=== PATIENT | female | born 1975 | race Caucasian/White ===

== ENCOUNTER 2020-02-19 06:46 | Day surgery (SDC) | payer MEDICAID ==
[~2020-02-19] VITALS: Ht 162.6 cm; Wt 131.4 kg
[2020-02-19 07:11] LABS: HEMATOCRIT 40.5 % (36.0-48.0); HEMOGLOBIN 13.3 g/dL (12-16); MCH 30.3 pg (26.0-34.0); MCHC 32.8 g/dL (31.0-37.0); MCV 92.3 fL (80.0-100.0); MEAN PLATELET VOLUME 8.8 fL (7.4-10.4); RBC 4.39 10x6/uL (4.00-5.40); RDW 13.6 % (11.5-14.5); WBC 14.1 10x3/uL (4.8-10.8)
[2020-02-19 07:25] LABS: ANION GAP 12.2 mmol/L (8-16); CARBON DIOXIDE 25.4 mmol/L (21.0-32.0); CREATININE - SERUM 1.1 mg/dL (0.6-1.3); POTASSIUM - SERUM 3.6 mmol/L (3.5-5.1)
[2020-02-19] MEDS ORDERED: CELEXA40 MG PO (07:38)
[2020-02-19] MEDS ORDERED: METOPROLOL TART50 MG PO (07:39)
[2020-02-19] MEDS ORDERED: SYNTHROID300 MCG PO (07:40)
[2020-02-19] MEDS ORDERED: GLUCOPHAGE500 MG PO (07:42)
[2020-02-19] MEDS ORDERED: GEMFIBROZIL600 MG PO (07:43)
[2020-02-19] MEDS ORDERED: LYRICA75 MG PO (07:43)
[2020-02-19] MEDS ORDERED: NAPROSYN500 MG PO (07:44)
[2020-02-19] MEDS ORDERED: ULTRAM50 MG PO (07:46)
[2020-02-19] MEDS ORDERED: OMEPRAZOLE40 MG PO (07:47)
[2020-02-19] MEDS ORDERED: MULTI-DAY VITAM1 TAB PO (07:48)
[2020-02-19] MEDS ORDERED: FERROUS SULFAT325 MG PO (07:49)
[2020-02-19] MEDS ORDERED: PROBIOTIC250 MG PO (07:50)
[2020-02-19] MEDS ORDERED: PREDNISONE10 MG PO (07:52)
[2020-02-19 08:14] VITALS: BP 126/69; Ht 162.6 cm; Wt 131.4 kg
--- NOTE | 2020-02-19 10:22 | NUR ---
1005 AWAKE & ALERT. GIVEN DISCHARGE INFORMATION INCLUDING: MED REC, SHEET LISTING NSAIDS TO AVOID FOR 10-14 DAYS, HIGH FIBER DIET HANDOUT, MED REC, & [facility] POST ENDOSCOPIC D/C INSTRUCTIONS. CLARIFIED RX ORDERED ELECTRONICALLY PER DR. LUDWIG FOR PATIENT. PT TO ALSO TAKE 1 TABLESPOON OF METAMUCIL DAILY. PT VOICED UNDERSTANDING. TO PRIVATE CAR PER WHEELCHAIR BY THIS NURSE. HOME WITH MOTHER, MRS. FELDMAN. Adelaida CERON R.N.
--- NOTE | 2020-02-20 14:16 | OP ---
PATIENT NAME: YOUSIF CAICEDO MEDICAL RECORD: [id number] :79 LOCATION:[facility] ADMISSION DATE: SURGEON: DOT LUDWIG DO DATE OF OPERATION: 02/19/2020 PROCEDURE: Colonoscopy with polypectomy. INDICATIONS FOR PROCEDURE: Iron deficiency anemia, constipation, family history positive for colon cancer in the patient's mother. SCOPE: Olympus video pediatric colonoscope. MEDICATIONS: Propofol 700 mg IV per anesthesia. WITHDRAWAL TIME: 13 minutes. ESTIMATED BLOOD LOSS: Minimal. COMPLICATIONS: None. FINDINGS: Informed consent was given. The patient was made comfortable with the above medication. After reaching an adequate level of sedation by slow IV push, the patient was placed on her left side. A digital rectal examination was performed and was normal. The endoscope was then advanced under direct visualization through the rectum to the cecum, confirmed by the presence of the appendiceal orifice and ileocecal valve. The endoscope was slowly withdrawn and the mucosa was carefully examined. The prep quality was fair. There were 4 polyps visualized on today's examination. Two were located in the rectum. They were both benign appearing and sessile and ranged in size from 3-4 mm in diameter. They were both removed using hot forceps. In the sigmoid colon, there was a benign appearing sessile polyp, which measured approximately 4 mm in diameter that was removed using hot forceps. In the ascending colon, there was a larger sessile polyp, which measured approximately 7 mm in diameter. It was removed using hot snare in 1 piece and retrieved. There was evidence of moderate diverticulosis involving the entire colon. There was no evidence of diverticulitis. Retroflexion was performed in the rectum with visualization of grade I internal hemorrhoids without bleeding. The endoscope was withdrawn from the patient. The patient tolerated the procedure well and there were no complications. IMPRESSION: 1. Four benign appearing polyps as described above, removed using a combination of a hot snare and hot forceps. 2. Moderate diverticulosis of the entire colon. 3. Grade I internal hemorrhoids without bleeding. PLAN AND RECOMMENDATIONS: 1. Discharge home when recovery parameters are met. 2. Follow up biopsy results. 3. High fiber diet. 4. Supplement diet with 1 tablespoon of Metamucil or psyllium husk fiber daily. 5. Dicyclomine 20 mg t.i.d. p.r.n. loose stools or abdominal pain and cramping. 6. Proceed with EGD as scheduled. 7. Follow up in GI clinic in 1 month. OPERATIVE REPORT [id number] CAICEDOYOUSIF STACY TRANSINT:[id number] Voice Confirmation ID: [id number] DOCUMENT ID: [id number] DOT LUDWIG DO at 1416 CC: [id number] DICTATION DATE: 02/19/20918 FILAMENT CUTTER: 02/19/201906 [facility] 02/19/20 [id number] [place] [address]
== END 2020-02-19 10:05 | disposition home or self-care (01) ==
LOC: D.OPS 06:46
PROVIDERS: Anesthesiology; ATTEND Internal Medicine Gastroenterology
DX: D50.9 Iron deficiency anemia, unspecified (principal); K59.00 Constipation, unspecified; Z80.0 Family history of malignant neoplasm of digestive organs; K63.5 Polyp of colon

== ENCOUNTER 2020-04-17 07:01 | Day surgery (SDC) | payer MEDICAID ==
[~2020-04-17] VITALS: Ht 162.6 cm; Wt 131.4 kg
[~2020-04-17 07:01] MED LIST: CELEXA40 MG PO; FERROUS SULFAT325 MG PO; GEMFIBROZIL600 MG PO; GLUCOPHAGE500 MG PO; LYRICA75 MG PO; METOPROLOL TART50 MG PO; MULTI-DAY VITAM1 TAB PO; NAPROSYN500 MG PO; OMEPRAZOLE40 MG PO; PREDNISONE10 MG PO; PROBIOTIC250 MG PO; SYNTHROID300 MCG PO; ULTRAM50 MG PO
[2020-04-17 07:36] LABS: HEMATOCRIT 40.5 % (36.0-48.0); HEMOGLOBIN 13.4 g/dL (12-16); MCH 30.8 pg (26.0-34.0); MCHC 33.1 g/dL (31.0-37.0); MCV 93.1 fL (80.0-100.0); MEAN PLATELET VOLUME 9.3 fL (7.4-10.4); RBC 4.35 10x6/uL (4.00-5.40); RDW 12.6 % (11.5-14.5); WBC 10.4 10x3/uL (4.8-10.8)
[2020-04-17 07:38] LABS: ANION GAP 12.4 mmol/L (8-16); CARBON DIOXIDE 26.9 mmol/L (21.0-32.0); CREATININE - SERUM 0.9 mg/dL (0.6-1.3); POTASSIUM - SERUM 4.3 mmol/L (3.5-5.1)
[2020-04-17 08:56] VITALS: BP 112/68; Ht 162.6 cm; Wt 131.4 kg
[2020-04-17 10:15] LABS: ALBUMIN 4.2 g/dL (3.4-5.0); BILIRUBIN - TOTAL 0.34 mg/dL (0.2-1.3); PROTEIN - SERUM 7.8 g/dL (6.4-8.2)
--- NOTE | 2020-04-19 15:58 | OP ---
PATIENT NAME: YOUSIF CAICEDO MEDICAL RECORD: [id number] :79 LOCATION:[facility] ADMISSION DATE: SURGEON: DOT LUDWIG DO DATE OF OPERATION: 04/17/2020 PROCEDURE: EGD with biopsies. INDICATIONS FOR PROCEDURE: Right upper quadrant abdominal pain, acid reflux, history of celiac disease, anemia. SCOPE: Olympus video gastroscope. ESTIMATED BLOOD LOSS: Minimal. COMPLICATIONS: None. MEDICATIONS: Propofol 200 mg IV per anesthesia. FINDINGS: Informed consent was given. The patient was made comfortable with the above medication. After reaching an adequate level of sedation by slow IV push, the patient was placed on her left side. The endoscope was advanced under direct visualization through the mouth to the second portion of the duodenum with ease. The entire esophagus appeared normal to the GE junction. Cold forceps biopsies were taken from the mid esophagus to rule out the presence of eosinophils. At the GE junction, there were minor changes consistent with LA class A reflux-induced esophagitis. The endoscope was advanced beyond the GE junction into the stomach and retroflexed to view the cardia and fundus. There was no significant hiatal hernia. Throughout the fundus and proximal body of the stomach, there were gastritis changes consisting of erythema, congestion, and friability. Appearances could be consistent with some portal hypertensive gastropathy. The distal stomach including the antrum and prepylorus appeared relatively normal. Cold forceps biopsies were taken from both the fundus and separately from the antrum to submit for histopathology and to rule out the presence of H. pylori. The endoscope was advanced beyond the pylorus into the duodenum. There was some possible scalloping of some folds which would be consistent with her celiac disease. Cold forceps biopsies were taken from the duodenum to submit for histopathology. The endoscope was withdrawn from the patient. The patient tolerated the procedure well and there were no complications. IMPRESSION: 1. LA class A reflux-induced esophagitis. 2. Gastritis involving the fundus and body of the stomach. 3. Possible scalloped folds located in the duodenum, which would be consistent with the patient's known history of celiac disease. PLAN AND RECOMMENDATIONS: 1. Discharge home when recovery parameters are met. 2. Follow up biopsy specimen results. 3. GERD diet and reflux precautions. 4. Continue omeprazole, but increased to 40 mg daily for 60 days. After that time, the medications can be reduced back to 20 mg. 5. Add Pepcid or famotidine 40 mg p.o. at bedtime. 6. Remain on a gluten-free diet regarding the celiac disease. 7. Consider further imaging of the liver if biopsies are consistent with any OPERATIVE REPORT [id number] YOUSIF CAICEDO of portal hypertensive gastropathy. 8. Follow up in GI clinic after 8 weeks at which point in time, we can discuss reducing the medications back down to current usage. TRANSINT:[id number] Voice Confirmation ID: [id number] DOCUMENT ID: [id number] DOT LUDWIG DO at 1558 CC: [id number] DICTATION DATE: 04/17/20 0948 TENT WORKER: 04/17/20 1239 [facility] 04/17/[address] [address]
== END 2020-04-17 10:45 | disposition home or self-care (01) ==
LOC: D.OPS 07:01
PROVIDERS: Anesthesiology; ATTEND Internal Medicine Gastroenterology
DX: R10.11 Right upper quadrant pain (principal); K21.9 Gastro-esophageal reflux disease without esophagitis; D64.9 Anemia, unspecified; Z87.898 Personal history of other specified conditions; K59.00 Constipation, unspecified; Z80.0 Family history of malignant neoplasm of digestive organs